=== PATIENT | female | born 1995 | race Two or more races ===

== ENCOUNTER 2017-03-17 19:52 | Emergency (ER) | payer MEDICAID ==
[~2017-03-17] VITALS: Ht 175.3 cm; Wt 72.6 kg
[2017-03-17 20:00] VITALS: BP 114/96
[2017-03-17 20:34] LABS: Urine Bilirubin Negative (Negative); Urine Blood Negative /uL (Negative); Urine Color Yellow (Yellow); Urine Glucose Normal (Normal); Urine Ketone Negative (Negative); Urine Nitrite Negative (Negative); Urine RBC <1 /hpf (0 - 4); Urine Squamous Epithelial Cell FEW /hpf (<5); Urine Urobilinogen Normal (Negative); Urine pH 5.5 (5.0-8.0)
[2017-03-17 21:18] LABS: Basophils # (auto) 0 uL; Basophils % (auto) 0.4 % (0.0-2.0); CONDITION Y; DEFINITIVE Y; Eosinophils # (auto) 0.1 uL; Eosinophils % (auto) 1.6 % (0.0-7.0); Hematocrit 40.7 % (36.0-46.0); Hemoglobin 13.7 g/dL (12.2-16.2); Lymphocytes # (auto) 3.3 uL; Lymphocytes % (auto) 35.8 % (10.0-50.0); Mean Corpuscular Hemoglobin 26.6 pg (28.0-32.0); Mean Corpuscular Hgb Conc. 33.6 g/dL (32.0-36.0); Mean Corpuscular Volume 79.3 fL (80.0-100.0); Mean Platelet Volume 8.8 fL (7.4-10.4); Monocytes # (auto) 0.6 uL; Monocytes % (auto) 6.8 % (0.0-12.0); Neutrophils # (auto) 5.1 uL; Neutrophils % (auto) 55.4 % (37.0-80.0); Platelet Count (auto) 313 10^3/uL (140-450); Red Cell Distribution Width 14.8 % (11.6-16.0); White Blood Cell 9.3 10^3/uL (4.4-10.8)
[2017-03-17 21:35] LABS: Albumin 3.7 g/dL (3.4-5.0); Anion Gap 11 (5-15); Aspartate Aminotransferase 22 U/L (15-37); BUN/Creatinine Ratio 15.7; Blood Urea Nitrogen 11 mg/dL (7-18); Calcium 8.3 mg/dL (8.5-10.1); Carbon Dioxide 23 mmol/L (21-32); Chloride 109 mmol/L (98-107); GFR African American 135 mL/min; GFR Non-African American 111 mL/min; Glucose 89 mg/dL (74-106); Magnesium 2.1 mg/dL (1.6-2.6); Potassium 3.6 mmol/L (3.5-5.1); Sodium 143 mmol/L (136-145)
[2017-03-17 21:40] LABS: Alkaline Phosphatase 187 U/L (45-117); Bilirubin, Total 0.7 mg/dL (0.2-1.0)
== END 2017-03-18 02:52 | disposition left against medical advice (07) ==
LOC: ER 19:56
DX: R07.89 Other chest pain (principal); Z53.21 Procedure and treatment not carried out due to patient leaving prior to being seen by health care provider
CPT/HCPCS: 36415; 80053; 81001; 83735; 84484; 84702; 85025; 93005

== ENCOUNTER 2017-09-30 09:15 | Observation (INO) | payer MEDICAID ==
[~2017-09-30] VITALS: Ht 175.3 cm; Wt 94.3 kg
[2017-09-30 10:30] LABS: Urine Bacteria NONE SEEN /hpf (None Seen); Urine Blood Negative /uL (Negative); Urine Mucus FEW (None Seen); Urine WBC 4 /hpf (0 - 5)
[2017-09-30] MEDS ORDERED: LACTATED RINGER'S 1,000 ML IV ONE (10:30)
== END 2017-09-30 12:25 | disposition home or self-care (01) | DRG 566 ==
LOC: LDRP 09:15
PROVIDERS: ADMIT Obstetrics & Gynecology; ATTEND Obstetrics & Gynecology
DX: O36.8130 Decreased fetal movements, third trimester, not applicable or unspecified (principal); O60.03 Preterm labor without delivery, third trimester; O23.43 Unspecified infection of urinary tract in pregnancy, third trimester; Z3A.29 29 weeks gestation of pregnancy
CPT/HCPCS: 59025; 81001; G0378

== ENCOUNTER 2025-02-05 11:38 | Inpatient (IN) | payer MEDICAID ==
[~2025-02-05] VITALS: Ht 175.3 cm; Wt 124.4 kg
--- NOTE | 2025-02-05 12:55 | DVH ---
Exam: US RIGHT UPPER EXT. Clinical History: Right shoulder pain Comparison: None Technique: Targeted sonographic evaluation of the soft tissues of the right shoulder was obtained utilizing gra yscale and color Doppler imaging. Findings/Impression: Isoechoic soft-tissue structure in the region of interest in the right shoulder measuring approximate ly 10.7 x 11.4 cm. This may represent a lipoma. This could be further evaluated with MRI without and with intravenous contrast if clinically indicated.
--- NOTE | 2025-02-05 14:32 | ED.PDOC ---
History of Present Illness(SKN HPI Comments 29 year old female with no pertinent MHx presents for a painful soft tissue mass consistent with lipoma to the right proximal humerus Symptoms have been ongoing for months and patient has been seen Dr. Chandra for a lipoma. Reports she has an upcoming apt 02/14 but and was prompted to the emergency department for worsening pain Patient reports the pain is consistent despite taking [id number] pain medication. Denies chest pain shortness of breath Denies fevers chills nausea vomiting diarrhea Chief Complaint: Upper Extremity Time Seen by MD: 12:13 Primary Care Provider: AILYN History of Present Illness: Nurses Notes, Medications, Allergies Allergies: Coded Allergies: No Known Drug Allergy (Verified Allergy, Unknown, 09/30/17) Home Meds No Active Prescriptions or Reported Meds Information Source: Patient Mode of Arrival: Ambulatory Past Medical History PAST MEDICAL HISTORY: Denies Surgical History: Denies all surgeries ORTHOPAEDIC SURGEON History: No Pertinent ORTHOPAEDIC SURGEON History Family History Family History: Reviewed,noncontributory to illness Social History Smoker: Non-Smoker Alcohol: Denies ETOH Use Drugs: Denies Drug Use All Other Systems: Reviewed and Negative (per hpi) Physical Exam General Appearance: No Apparent Distress, Normal HEENT: Normal ENT Inspection, Pharynx Normal, TMs Normal Neck: Full Range of Motion, Non-Tender, Normal, Normal Inspection Respiratory: Chest Non-Tender, Lungs Clear, No Accessory Muscle Use, No Respiratory Distress, Normal Breath Sounds Cardiovascular: No Edema, No JVD, No Murmur, No Gallop, Normal Peripheral Pulses, Regular Rate/Rhythm Breast Exam: Deferred Gastrointestinal: No Organomegaly, Non Tender, No Pulsatile Mass, Normal Bowel Sounds, Soft Genitalia: Deferred Pelvic: Deferred Rectal: Deferred Extremities: No calf tenderness, Normal capillary refill, Normal inspection, Normal range of motion, Non-tender, No pedal edema Musculoskeletal : Location: Right Extremity Location: Shoulder (Soft tissue swelling consistent with lipoma. No TTP. No erythema.) Apperance: Normal Neurologic: Alert, spray unit feeder II-XII nml as Tested, No Motor Deficits, Normal Affect, Normal Mood, No Sensory Deficits Cerebellar Function: Normal Reflexes: Normal Skin: Dry, Normal Color, Warm Lymphatic: No Adenopathy Was a procedure done? Was a procedure done?: No Differential Diagnosis (INTG) Differential Diagnosis: Other X-Ray, Labs, Meds, VS Vital Signs Date Time Temp Pulse Resp B/P (MAP) Pulse Ox O2 Delivery O2 Flow Rate FiO2 02/05/25 17:53 78 16 123/74 02/05/25 17:30 75 18 134/78 02/05/25 17:19 98.0 75 16 127/72 (90) 100 98.0 02/05/25 15:10 85 16 100 Room Air* 0 21 02/05/25 15:10 85 16 127/72 (90) 100 02/05/25 11:51 98.1 112 18 151/100 (117) 98 98.1 Lab Test 02/05/25 14:38 Range/Units White Blood Count 7.2 4.4-10.8 10^3/uL Red Blood Count 5.18 4.0-5.20 10^6/uL Hemoglobin 13.0 12.2-16.2 g/dL Hematocrit 40.0 36.0-46.0 % Mean Corpuscular Volume 77.3 L 80.0-100.0 fL Mean Corpuscular Hemoglobin 25.2 L 28.0-32.0 pg Mean Corpuscular Hemoglobin Concent 32.6 32.0-36.0 g/dL Red Cell Distribution Width 16.3 H 11.8-14.3 % Platelet Count 265 140-450 10^3/uL Mean Platelet Volume 7.8 6.9-10.8 fL Neutrophils (%) (Auto) 77.2 37.0-80.0 % Lymphocytes (%) (Auto) 15.4 10.0-50.0 % Monocytes (%) (Auto) 6.6 0.0-12.0 % Eosinophils (%) (Auto) 0.5 0.0-7.0 % Basophils (%) (Auto) 0.3 0.0-2.0 % Neutrophils # (Auto) 5.6 1.6-8.6 10 ^3/uL Lymphocytes # (Auto) 1.1 0.4-5.4 10 ^3/uL Monocytes # (Auto) 0.5 0-1.3 10 ^3/uL Eosinophils # (Auto) 0 0-0.8 10 ^3/uL Basophils # (Auto) 0 0-0.2 10 ^3/uL Nucleated Red Blood Cells 0.2 % Sodium Level 137 136-145 mmol/L Potassium Level 3.8 3.5-5.1 mmol/L Chloride Level 104 98-107 mmol/L Carbon Dioxide Level 23 20-31 mmol/L Anion Gap 10 5-15 Blood Urea Nitrogen 11 9-23 mg/dL Creatinine 0.63 0.550-1.02 mg/dL Glomerular Filtration Rate Calc 122 >90 mL/min BUN/Creatinine Ratio 17.5 10.0-20.0 Serum Glucose 97 74-106 mg/dL Calcium Level 9.2 8.7-10.4 mg/dL PATIENT: YURY GASCAACCT: [id number]: [id number] : 1995 LOC: ER ROOM / BED: / AGE / SEX: 29 / F ADM STATUS: REG ER SERVICE 1212 ORDERING PHYSICIAN: YANE BULLARD NP PROCEDURE(s): RUEXT - Right upper Ext. REASON: ORDER NUMBER(s): [id number], ACCESSION NUMBER(s): [id number] Exam: US RIGHT UPPER EXT. Clinical History: Right shoulder pain Comparison: None Technique: Targeted sonographic evaluation of the soft tissues of the right shoulder was obtained utilizing grayscale and color Doppler imaging. Findings/Impression: Isoechoic soft-tissue structure in the region of interest in the right shoulder measuring approximately 10.7 x 11.4 cm. This may represent a lipoma. This could be further evaluated with MRI without and with intravenous contrast if clinically indicated. ATED BY: ARTEMIO BALLARD MD DICTATED DATE/TIME: 02/05/251252 SIGNED BY: ARTEMIO BALLARD MD SIGNED DATE/TIME: 02/05/251252 CC: X-Ray, Labs, Meds, VS Comment The patient presents with s/s consistent with lipoma. US showed: Isoechoic soft-tissue structure in the region of interest in the right shoulder measuring approximately 10.7 x 11.4 cm. This may represent a lipoma. This could be further evaluated with MRI without and with intravenous contrast if clinically indicated. May need surgical consultation. The patient's workup reveals that the patient needs further evaluation and/or treatment for the above medical conditions. Patient verbalized understanding of the above and is awaiting further evaluation by the admitting service. Time of 1ST Reevaluation: 14:28 Reevaluation 1ST: Unchanged Patient Education/Counseling: Diagnosis, Treatment Family Education/Counseling: Diagnosis, Treatment Departure 1 Departure Time of Disposition: 14:31 Impression: Primary Impression: Lipoma Qualified Codes: D17.21 - Benign lipomatous neoplasm of skin and subcutaneous tissue of right arm Additional Impression: Intractable pain Disposition: ADMITTED INPATIENT Condition: Serious e-Prescriptions No Active Prescriptions or Reported Meds Critical Care Note Critical Care Time?: No Stability Stability form required: No Heart Score Heart Score: Heart Score Response (Comments) Value History N/A 0 EKG N/A 0 Age N/A 0 Risk Factors N/A 0 Troponin N/A 0 Total 0 YANE BULLARD NP February 05, 2025 14:32
[2025-02-05 14:53] LABS: Basophils # (auto) 0 10 ^3/uL (0-0.2); Basophils % (auto) 0.3 % (0.0-2.0); Eosinophils # (auto) 0 10 ^3/uL (0-0.8); Lymphocytes # (auto) 1.1 10 ^3/uL (0.4-5.4); Mean Corpuscular Hemoglobin 25.2 pg (28.0-32.0); Monocytes # (auto) 0.5 10 ^3/uL (0-1.3); Neutrophils # (auto) 5.6 10 ^3/uL (1.6-8.6); Red Blood Cells 5.18 10^6/uL (4.0-5.20); White Blood Cell 7.2 10^3/uL (4.4-10.8)
[2025-02-05 14:55] LABS: Eosinophils % (auto) 0.5 % (0.0-7.0); Lymphocytes % (auto) 15.4 % (10.0-50.0); Mean Corpuscular Hgb Conc. 32.6 g/dL (32.0-36.0); Mean Corpuscular Volume 77.3 fL (80.0-100.0); Monocytes % (auto) 6.6 % (0.0-12.0); Neutrophils % (auto) 77.2 % (37.0-80.0); Nucleated Red Blood Cells % 0.2 %; Platelet Count (auto) 265 10^3/uL (140-450); Red Cell Distribution Width 16.3 % (11.8-14.3)
[2025-02-05 15:01] LABS: Anion Gap 10 (5-15); Carbon Dioxide 23 mmol/L (20-31); Chloride 104 mmol/L (98-107); Potassium 3.8 mmol/L (3.5-5.1); Sodium 137 mmol/L (136-145)
[2025-02-05 15:02] LABS: Calcium 9.2 mg/dL (8.7-10.4)
[2025-02-05 15:06] LABS: BUN/Creatinine Ratio 17.5 (10.0-20.0); Blood Urea Nitrogen 11 mg/dL (9-23); Glucose 97 mg/dL (74-106)
[2025-02-05 15:10] VITALS: PULSE 85; RESP 16; O2SAT 100
[2025-02-05] MEDS: HYDROcodone-ACET 10/325MG TAB PO ONE (15:15)
[2025-02-05] MEDS: ONDANSETRON HCL 4 MG/2 ML VIAL IV ONE (17:28)
[2025-02-05] MEDS: MORPHINE SULFATE 4 MG/ML SYR/VIAL IV ONE (17:30)
[2025-02-05] MEDS ORDERED: ONDANSETRON HCL 4 MG/2 ML VIAL IV PRN (18:45)
[2025-02-05] MEDS ORDERED: TEMAZEPAM 15 MG CAP PO PRN (18:45)
[2025-02-05 20:04] LABS: INR 0.98 (0.9-1.15); Partial Thromboplastin Time 27.1 SEC (24.5-34.5); Prothrombin Time 10.4 sec (9.3-11.8)
[2025-02-05] MEDS: HYDROcodone-ACET 5/325MG TAB PO PRN (21:33)
[2025-02-05 22:13] VITALS: PULSE 89; RESP 18; O2SAT 99
[2025-02-05 23:20] VITALS: BP 133/77; PULSE 90; RESP 16; TEMP 98.4; O2SAT 98
[2025-02-06] VITALS (8 sets, daily range): BP systolic 113–148; BP diastolic 60–76; PULSE 69–104; RESP 18–20; TEMP 98.1–98.3; O2SAT 94–99
--- NOTE | 2025-02-06 13:01 | DVHINCON2 ---
Date of service: February 06, 2025 Family History: Patient reports no known family medical history. Allergies: Coded Allergies: No Known Drug Allergy (Verified Allergy, Unknown, 09/30/17) Home Meds No Active Prescriptions or Reported Meds Current Medications Current Medications Medications (Trade) Dose Ordered Sig/Benjy Route PRN Reason Start Time Stop Time Status Last Admin Acetaminophen/ Hydrocodone Bitart ([place] 5/325MG Tab) 1 tab Q4HP PRN PO MODERATE PAIN (4-6 PAIN SCALE) 02/05/25 18:45 02/06/25 06:06 Temazepam (Restoril) 15 mg QHSP PRN PO FOR INSOMNIA 02/05/25 18:45 Ondansetron HCl (Zofran) 4 mg Q4HP PRN IV NAUSEA / VOMITING 02/05/25 18:45 Acetaminophen (Tylenol Tablet) 650 mg Q6HP PRN PO PAIN SCALE 1-3 OR TEMP>100.4 02/05/25 18:45 Vital Signs Vital Signs Date Time Temp Pulse Resp B/P (MAP) Pulse Ox O2 Delivery O2 Flow Rate FiO2 02/06/25 09:00 98.2 69 18 113/76 (88) 99 98.2 02/06/25 08:00 Room Air* 0 21 Labs/Diagnostic Data Labs Test 02/05/25 19:41 02/05/25 14:38 Range/Units Prothrombin Time 10.4 9.3-11.8 sec Prothrombin Time INR 0.98 0.9-1.15 Activated Partial Thromboplast Time 27.1 24.5-34.5 SEC White Blood Count 7.2 4.4-10.8 10^3/uL Red Blood Count 5.18 4.0-5.20 10^6/uL Hemoglobin 13.0 12.2-16.2 g/dL Hematocrit 40.0 36.0-46.0 % Mean Corpuscular Volume 77.3 L 80.0-100.0 fL Mean Corpuscular Hemoglobin 25.2 L 28.0-32.0 pg Mean Corpuscular Hemoglobin Concent 32.6 32.0-36.0 g/dL Red Cell Distribution Width 16.3 H 11.8-14.3 % Platelet Count 265 140-450 10^3/uL Mean Platelet Volume 7.8 6.9-10.8 fL Neutrophils (%) (Auto) 77.2 37.0-80.0 % Lymphocytes (%) (Auto) 15.4 10.0-50.0 % Monocytes (%) (Auto) 6.6 0.0-12.0 % Eosinophils (%) (Auto) 0.5 0.0-7.0 % Basophils (%) (Auto) 0.3 0.0-2.0 % Neutrophils # (Auto) 5.6 1.6-8.6 10 ^3/uL Lymphocytes # (Auto) 1.1 0.4-5.4 10 ^3/uL Monocytes # (Auto) 0.5 0-1.3 10 ^3/uL Eosinophils # (Auto) 0 0-0.8 10 ^3/uL Basophils # (Auto) 0 0-0.2 10 ^3/uL Nucleated Red Blood Cells 0.2 % Sodium Level 137 136-145 mmol/L Potassium Level 3.8 3.5-5.1 mmol/L Chloride Level 104 98-107 mmol/L Carbon Dioxide Level 23 20-31 mmol/L Anion Gap 10 5-15 Blood Urea Nitrogen 11 9-23 mg/dL Creatinine 0.63 0.550-1.02 mg/dL Glomerular Filtration Rate Calc 122 >90 mL/min BUN/Creatinine Ratio 17.5 10.0-20.0 Serum Glucose 97 74-106 mg/dL Calcium Level 9.2 8.7-10.4 mg/dL Assessment has a large lipoma of the right shoulder at the apex of the shoulder and along thwe deltoid, pain is out of proportion to just an uncomplicated lipoma, will get MRI Plan discussed with: Patient, Spouse UNRULY MONTELONGO MD February 06, 2025 13:01
--- NOTE | 2025-02-06 13:17 | DVHPN2 ---
Reviewed: Care Plan, H&P, Labs, Medications, Previous Orders, Radiology Changes from previous H/P or p: No Changes Objective Vitals Vital Signs Date Time Temp Pulse Resp B/P (MAP) Pulse Ox O2 Delivery O2 Flow Rate FiO2 02/06/25 09:00 98.2 69 18 113/76 (88) 99 98.2 02/06/25 08:00 Room Air* 0 21 Intake/Output Intake and Output 02/06/25 07:00 Intake Total 240 ml Balance 240 ml Intake Oral 240 ml # Voids 2 Medications Current Medications Medications Dose Ordered Sig/Benjy Route Start Time Stop Time Status Last Admin Dose Admin Acetaminophen/ Hydrocodone Bitart 1 tab Q4HP PRN PO 02/05/25 18:45 02/06/25 06:06 1 TAB Temazepam 15 mg QHSP PRN PO 02/05/25 18:45 Ondansetron HCl 4 mg Q4HP PRN IV 02/05/25 18:45 Acetaminophen 650 mg Q6HP PRN PO 02/05/25 18:45 Laboratory Results Laboratory Tests 02/05/25 14:38 Chemistry Test 02/05/25 14:38 Calcium Level 9.2 mg/dL (8.7-10.4) Coagulation Test 02/05/25 19:41 Prothrombin Time 10.4 sec (9.3-11.8) Prothrombin Time INR 0.98 (0.9-1.15) Activated Partial Thromboplast Time 27.1 SEC (24.5-34.5) Labs and/or images reviewed: Labs reviewed by me, Image(s) reviewed by me Assessment/Plan Assessment/Plan 10 cm lipoma right shoulder: Surgical consult by Dr Chandra appreciated, MRI right shoulder pending. Plan discussed with: Patient Date of Service: February 06, 2025 Billing Provider: VALENTINO CAMPA MD Common Visit Codes: [id number] INP/OBS CARE(HIGH) VALENTINO CAMPA MD February 06, 2025 13:17
[2025-02-06] MEDS: GADOTERATE MEG 10 MMOL/20ml INJ (0.5MMOL/ml) IV ONE (14:55)
--- NOTE | 2025-02-06 21:20 | DVH ---
EXAM: MRI MRI R SHOULDER WITH CONTRAST INDICATION: pain neck and right shoulder (out of proportion to lipoma) TECHNIQUE: Multiplanar, multisequence MR images of the right shoulder were obtained with and without gadolinium contrast material. COMPARISON: None FINDINGS: [CORACOACROMIAL ARCH]: Normal acromioclavicular joint. Intact coracoclavicular ligaments. Intact cor acoacromial ligaments. No subacromial/subdeltoid bursal fluid. [ROTATOR CUFF]: Intact. [BICEPS TENDON]: Intact without tenosynovitis. [LABRUM]: Intact. [CARTILAGE]: No measurable cartilage defect. [GLENOHUMERAL JOINT]: No joint effusion. No intra-articular body. [BONES]: No acute fracture, osseous contusion, or aggressive focal osseous lesion. [MUSCLES]: Normal muscle bulk of the rotator cuff muscles. [NEUROVASCULAR/LYMPH NODES]: Normal. [OTHER]: Inversely clinical question, large fat containing, encapsulated mass measuring 10.5 x 7.7 x 7.8 cm in the superficial subcutaneous fat extending above the right acromioclavicular joint and like ly causing slight mass effect along the trapezius and deltoid muscle. No suspicious internal features . No suspicious septation or abnormal nodularity. Marginal vascularity. No suspicious internal thicke aneesh Hood. IMPRESSION: 1. 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 2. Given size and mass effect and pain, recommend surgical consultation with removal with presumption of atypical lipomatous tumor.
[2025-02-07] VITALS (8 sets, daily range): BP systolic 103–129; BP diastolic 55–76; PULSE 70–90; RESP 17–20; TEMP 97.7–98.4; O2SAT 95–98
--- NOTE | 2025-02-07 09:19 | DVHPN2 ---
Reviewed: Care Plan, H&P, Labs, Medications, Previous Orders, Radiology Changes from previous H/P or p: No Changes Objective Vitals Vital Signs Date Time Temp Pulse Resp B/P (MAP) Pulse Ox O2 Delivery O2 Flow Rate FiO2 02/07/25 08:00 70 18 96 Room Air* 0 21 02/07/25 05:00 98.2 103/55 (71) 98.2 Intake/Output Intake and Output 02/07/25 07:00 Intake Total 1250 ml Balance 1250 ml Intake Oral 1250 ml # Voids 3 # Bowel Movements 3 Medications Current Medications Medications Dose Ordered Sig/Benjy Route Start Time Stop Time Status Last Admin Dose Admin Acetaminophen/ Hydrocodone Bitart 1 tab Q4HP PRN PO 02/05/25 18:45 02/06/25 06:06 1 TAB Temazepam 15 mg QHSP PRN PO 02/05/25 18:45 Ondansetron HCl 4 mg Q4HP PRN IV 02/05/25 18:45 Acetaminophen 650 mg Q6HP PRN PO 02/05/25 18:45 Laboratory Results Laboratory Tests 02/05/25 14:38 Labs and/or images reviewed: Labs reviewed by me, Image(s) reviewed by me Assessment/Plan Assessment/Plan 10 cm lipoma right shoulder: Surgical consult by Dr Chandra appreciated MRI shows well-differentiated liposarcoma Plan discussed with: Patient Date of Service: February 07, 2025 Billing Provider: VALENTINO CAMPA MD Common Visit Codes: [id number] INP/OBS CARE(HIGH) VALENTINO CAMPA MD February 07, 2025 09:19
--- NOTE | 2025-02-07 09:57 | DVHPN2 ---
Subjective Date Seen: February 07, 2025 Post op day Post op day: 0 Patient reports: No new complaints Nursing reports: No new complaints General: Normal HNT: Normal Cardiovascular: Normal Respiratory: Normal Gastrointestinal: Normal Genitourinary: Normal Musculoskeletal: Pain Neurological: Normal Objective Vitals Vital Sign Date Time Temp Pulse Resp B/P (MAP) Pulse Ox O2 Delivery O2 Flow Rate FiO2 02/07/25 09:00 97.7 80 18 129/70 (89) 98 97.7 02/07/25 08:00 Room Air* 0 21 Total Intake and Output 02/06/25 02/06/25 02/07/25 15:00 23:00 07:00 Intake Total 350 ml 900 ml Balance 350 ml 900 ml Medications Current Medications Medications Dose Ordered Sig/Benjy Route Start Time Stop Time Status Last Admin Dose Admin Acetaminophen/ Hydrocodone Bitart 1 tab Q4HP PRN PO 02/05/25 18:45 02/06/25 06:06 1 TAB Temazepam 15 mg QHSP PRN PO 02/05/25 18:45 Ondansetron HCl 4 mg Q4HP PRN IV 02/05/25 18:45 Acetaminophen 650 mg Q6HP PRN PO 02/05/25 18:45 General: Normal, Well developed, Obese Head/Eyes: Normal ENT: Normal Neck: Normal Lungs: Normal Abdominal: Normal, Soft, Normal inspection Labs and Microbiology Laboratory Tests 02/05/25 14:38 Test 02/05/25 14:38 Range/Units Serum Glucose 97 74-106 mg/dL Ass/Plan Labs and/or images reviewed: Labs reviewed by me, Image(s) reviewed by me Problems(with codes): (1) Shoulder pain, right (2) Lipoma (3) Intractable pain Assessment/Plan patient complaint of right shoulder pain patient has a mass to right shoulder which is tender to palpation review of of MRI and discussion with Dr. Chandra IMPRESSION: 1. 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 2. Given size and mass effect and pain, recommend surgical consultation with removal with presumption of atypical lipomatous tumor. Plan: excision of right shoulder mass tomorrow Prognosis: Good Plan discussed with patient , Dr. Chandra Visit Coding Surgery Date of Service if different f: February 07, 2025 Billing Provider: UNRULY CHANDRA MD Surgery Visit Codes: [id number] INP/OBS CARE(HIGH) SHOLA MCNEIL STRIP STAMP STRAIGHTENER February 07, 2025 09:57
[2025-02-07 11:02] LABS: INR 0.97 (0.9-1.15); Partial Thromboplastin Time 25.4 SEC (24.5-34.5); Prothrombin Time 10.3 sec (9.3-11.8)
[2025-02-07 23:45] LABS: Urine Bacteria MANY /hpf (None Seen); Urine Blood Negative /uL (Negative); Urine Clarity Turbid (Clear); Urine Color Light-Yellow (Yellow); Urine Protein, UAD Negative (Negative); Urine Specific Gravity 1.025 (1.001-1.035); Urine Squamous Epithelial Cell FEW /hpf (<5); Urine Urobilinogen Normal (Negative); Urine WBC 13 /HPF (0-5); Urine pH 6.5 (5.0-9.0)
[2025-02-08] VITALS (8 sets, daily range): BP systolic 99–137; BP diastolic 44–75; PULSE 80–111; RESP 13–21; TEMP 97.8–98.6; O2SAT 93–100
[2025-02-08] MEDS: ceFAZolin 2 GM/D5W50ml 50 ML IV ONE (07:47)
--- NOTE | 2025-02-08 08:09 | DVHHP2 ---
History of Present Illness History of Present Illness 29-year-old female with no previous medical history came to the ER complaining of pain over the right upper arm and shoulder area for a few months the swelling has been growing and tender. Denies any fever. Review of Systems Musculoskeletal: shoulder pain, arm pain Allergies: Coded Allergies: No Known Drug Allergy (Verified Allergy, Unknown, 09/30/17) Medications Current Medications Medications Dose Ordered Sig/Benjy Route Start Time Stop Time Status Last Admin Dose Admin Acetaminophen/ Hydrocodone Bitart 1 tab Q4HP PRN PO 02/05/25 18:45 02/06/25 06:06 1 TAB Temazepam 15 mg QHSP PRN PO 02/05/25 18:45 Ondansetron HCl 4 mg Q4HP PRN IV 02/05/25 18:45 Acetaminophen 650 mg Q6HP PRN PO 02/05/25 18:45 Exam Vital Signs Vital Signs Date Time Temp Pulse Resp B/P (MAP) Pulse Ox O2 Delivery O2 Flow Rate FiO2 02/08/25 05:00 97.9 83 18 103/57 (72) 97 97.9 02/07/25 20:00 Room Air* 0 21 Exam Soft tissue mass over the right upper arm and shoulder consistent with a possible lipoma Labs/Xrays Labs Test 02/07/25 23:30 02/07/25 10:06 02/05/25 14:38 Range/Units Urine Color Light-yellow Yellow Urine Clarity Turbid H Clear Urine pH 6.5 5.0-9.0 Urine Specific [place] 1.025 1.001-1.035 Urine Protein Negative Negative Urine Ketones Negative Negative Urine Blood Negative Negative /uL Urine Nitrite 2+ H Negative Urine Bilirubin Negative Negative Urine Urobilinogen Normal Negative mg/dL Urine Leukocyte Esterase 1+ Negative /uL Urine RBC 3 0 - 4 /hpf Urine Microscopic WBC 13 H 0-5 /HPF Urine Squamous Epithelial Cells Few <5 /hpf Urine Bacteria Many H None Seen /hpf Urine Glucose Normal Normal mg/dL Prothrombin Time 10.3 9.3-11.8 sec Prothrombin Time INR 0.97 0.9-1.15 Activated Partial Thromboplast Time 25.4 24.5-34.5 SEC Beta HCG, Quantitative 0.2 L 1.5-4.2 mIU/mL White Blood Count 7.2 4.4-10.8 10^3/uL Red Blood Count 5.18 4.0-5.20 10^6/uL Hemoglobin 13.0 12.2-16.2 g/dL Hematocrit 40.0 36.0-46.0 % Mean Corpuscular Volume 77.3 L 80.0-100.0 fL Mean Corpuscular Hemoglobin 25.2 L 28.0-32.0 pg Mean Corpuscular Hemoglobin Concent 32.6 32.0-36.0 g/dL Red Cell Distribution Width 16.3 H 11.8-14.3 % Platelet Count 265 140-450 10^3/uL Mean Platelet Volume 7.8 6.9-10.8 fL Neutrophils (%) (Auto) 77.2 37.0-80.0 % Lymphocytes (%) (Auto) 15.4 10.0-50.0 % Monocytes (%) (Auto) 6.6 0.0-12.0 % Eosinophils (%) (Auto) 0.5 0.0-7.0 % Basophils (%) (Auto) 0.3 0.0-2.0 % Neutrophils # (Auto) 5.6 1.6-8.6 10 ^3/uL Lymphocytes # (Auto) 1.1 0.4-5.4 10 ^3/uL Monocytes # (Auto) 0.5 0-1.3 10 ^3/uL Eosinophils # (Auto) 0 0-0.8 10 ^3/uL Basophils # (Auto) 0 0-0.2 10 ^3/uL Nucleated Red Blood Cells 0.2 % Sodium Level 137 136-145 mmol/L Potassium Level 3.8 3.5-5.1 mmol/L Chloride Level 104 98-107 mmol/L Carbon Dioxide Level 23 20-31 mmol/L Anion Gap 10 5-15 Blood Urea Nitrogen 11 9-23 mg/dL Creatinine 0.63 0.550-1.02 mg/dL Glomerular Filtration Rate Calc 122 >90 mL/min BUN/Creatinine Ratio 17.5 10.0-20.0 Serum Glucose 97 74-106 mg/dL Calcium Level 9.2 8.7-10.4 mg/dL Assessment/Plan Assessment/Plan 10 cm lipoma right shoulder: Patient will be admitted and have a surgical consult by Dr. Chandra Plan discussed with: Patient VALENTINO CAMPA MD February 08, 2025 08:09
--- NOTE | 2025-02-08 08:12 | DVHPN2 ---
Reviewed: Care Plan, H&P, Labs, Medications, Previous Orders, Radiology Changes from previous H/P or p: No Changes Musculoskeletal: shoulder pain, arm pain Objective Vitals Vital Signs Date Time Temp Pulse Resp B/P (MAP) Pulse Ox O2 Delivery O2 Flow Rate FiO2 02/08/25 05:00 97.9 83 18 103/57 (72) 97 97.9 02/07/25 20:00 Room Air* 0 21 Intake/Output Intake and Output 02/08/25 07:00 Intake Total 1180 ml Balance 1180 ml Intake Oral 1180 ml # Voids 6 Medications Current Medications Medications Dose Ordered Sig/Benjy Route Start Time Stop Time Status Last Admin Dose Admin Acetaminophen/ Hydrocodone Bitart 1 tab Q4HP PRN PO 02/05/25 18:45 02/06/25 06:06 1 TAB Temazepam 15 mg QHSP PRN PO 02/05/25 18:45 Ondansetron HCl 4 mg Q4HP PRN IV 02/05/25 18:45 Acetaminophen 650 mg Q6HP PRN PO 02/05/25 18:45 Laboratory Results Laboratory Tests 02/05/25 14:38 Coagulation Test 02/07/25 10:06 Prothrombin Time 10.3 sec (9.3-11.8) Prothrombin Time INR 0.97 (0.9-1.15) Activated Partial Thromboplast Time 25.4 SEC (24.5-34.5) Urinalysis Test 02/07/25 23:30 Urine Color Light-yellow (Yellow) Urine Clarity Turbid (Clear) H Urine pH 6.5 (5.0-9.0) Urine Specific [place] 1.025 (1.001-1.035) Urine Protein Negative (Negative) Urine Ketones Negative (Negative) Urine Blood Negative /uL (Negative) Urine Nitrite 2+ (Negative) H Urine Bilirubin Negative (Negative) Urine Urobilinogen Normal mg/dL (Negative) Urine Leukocyte Esterase 1+ /uL (Negative) Urine RBC 3 /hpf (0 - 4) Urine Microscopic WBC 13 /HPF (0-5) H Urine Squamous Epithelial Cells Few /hpf (<5) Urine Bacteria Many /hpf (None Seen) H Urine Glucose Normal mg/dL (Normal) Labs and/or images reviewed: Labs reviewed by me, Image(s) reviewed by me Assessment/Plan Assessment/Plan 10 cm lipoma right shoulder: Surgical consult by Dr. Chandra appreciated. MRI shows well-differentiated liposarcoma, patient getting surgery today Continue pain medicines Plan discussed with: Patient Date of Service: February 08, 2025 Billing Provider: VALENTINO CAMPA MD Common Visit Codes: [id number] INP/OBS CARE(HIGH) VALENTINO CAMPA MD February 08, 2025 08:12
[2025-02-08] MEDS: SUCCINYLCHOLINE CHLORIDE 20 MG/ML 10ML VIAL IV ONE (09:13)
[2025-02-08] MEDS ORDERED: MIDAZOLAM HCL 2MG/2ML 2ml VIAL (1mg/ml) ONE (09:14)
[2025-02-08] MEDS ORDERED: fentaNYL CITRATE 100 MCG/2 ML VL ONE (09:14)
[2025-02-08] MEDS: BUPIVACAINE HCL 0.25% P/F 10 ML VIAL ONE (09:35)
[2025-02-08] MEDS: LIDOCAINE W/ EPINEPHRINE 1% 20ML VIAL ONE (09:35)
[2025-02-08] MEDS ORDERED: PROPOFOL 10 MG/ML 20 ML IV ONE (09:40)
[2025-02-08] MEDS ORDERED: DexAMETHasone SOD PHOS 10MG/1ML VIAL INJ ONE (09:40)
[2025-02-08] MEDS ORDERED: ONDANSETRON HCL 4 MG/2 ML VIAL ONE (09:40)
[2025-02-08] MEDS ORDERED: ROCURONIUM 10MG/ML 10ML VIAL IV ONE (09:41)
[2025-02-08] MEDS ORDERED: SUGAMMADEX 200mg/2ml Vial (100MG/ML) IV ONE (10:02)
--- NOTE | 2025-02-08 10:04 | DVHOP ---
DATE OF SURGERY: 02/08/2025 PREOPERATIVE DIAGNOSIS: Tumor, right shoulder. POSTOPERATIVE DIAGNOSIS: Lipoma, right shoulder. SURGEON: Clayton Chandra MD TURBOGENERATOR OPERATOR: Quinn Ariza. ANESTHESIA: General endotracheal, Dr. Dobbs. PROCEDURE: Excision of lipoma from right shoulder. DESCRIPTION OF PROCEDURE: The patient was anesthetized and intubated. The patient's right shoulder, chest, and neck were prepped and draped, and the skin over the large lipomatous tumor was infiltrated with 0.25% Marcaine for postoperative analgesia. The incision was made, deepened with electrocautery. Digital dissection revealed a smooth, fully encapsulated lipomatous tumor which reached from the clavicle to the superior edge of the scapula of the right shoulder. There was no evidence of tissue degeneration or tissue infarction. There were no areas of tissue infiltration or erosion of surrounding structures. I doubt the diagnosis of liposarcoma is indicated by MRI. I believe this is a benign lipoma. The tumor was submitted for histopathologic examination. The wound was irrigated. Hemostasis was accomplished. Approximation accomplished utilizing 2-0 Monocryl sutures after insertion of a 10-mm Ricky-Flannery drain into the large cavity evacuated from the lipoma excision. Skin and subcutaneous tissues were approximated using Monocryl sutures, Dermabond glue, and Steri-Strips. The patient remained stable throughout the procedure, left the operating room following an accurate needle and sponge count. The patient's mother was thoroughly informed in the waiting area in Tunisian. Clayton Chandra MD PF/STEFFI TID: [id number] RECEIPT: [id number]
[2025-02-08] MEDS: ceFAZolin 1GM/50ML 50 ML IV SCH (14:46)
[2025-02-08] MEDS: D5W/SOD CHL 0.45%/KCL 20MEQ 1,000 ML IV SCH (14:46)
[2025-02-08] MEDS: ACETAMINOPHEN 325 MG TAB PO PRN (22:19)
[2025-02-09 01:00] VITALS: BP_SYST 115; BP_SYST 155; BP_DIAS 53; BP_DIAS 85; PULSE 55; PULSE 95; RESP 18; TEMP 97.9; TEMP 98.3; O2SAT 96; O2SAT 98
[2025-02-09 05:00] VITALS: BP 122/70; PULSE 81; RESP 18; TEMP 98.6; O2SAT 96
[2025-02-09] MEDS ORDERED: PNEUMOCOCCAL VACC POLYS 25 MCG/0.5 ML VIAL IM ONE (07:15)
[2025-02-09 08:00] VITALS: PULSE 85; RESP 20; O2SAT 95
[2025-02-09 09:00] VITALS: BP 116/59; PULSE 85; RESP 18; TEMP 97.8; O2SAT 95
--- NOTE | 2025-02-09 09:04 | DVHPN2 ---
Reviewed: Care Plan, H&P, Labs, Medications, Previous Orders, Radiology Changes from previous H/P or p: No Changes Musculoskeletal: shoulder pain, arm pain Objective Vitals Vital Signs Date Time Temp Pulse Resp B/P (MAP) Pulse Ox O2 Delivery O2 Flow Rate FiO2 02/09/25 08:00 85 20 95 Room Air* 0 21 02/09/25 05:00 98.6 122/70 (87) 98.6 Intake/Output Intake and Output 02/09/25 07:00 Intake Total 1975 ml Output Total 20 ml Balance 1955 ml Intake Oral 925 ml IV Total 1050 ml Output Drainage Total 20 ml # Voids 2 Medications Current Medications Medications Dose Ordered Sig/Benjy Route Start Time Stop Time Status Last Admin Dose Admin Acetaminophen/ Hydrocodone Bitart 1 tab Q4HP PRN PO 02/05/25 18:45 02/06/25 06:06 1 TAB Temazepam 15 mg QHSP PRN PO 02/05/25 18:45 Ondansetron HCl 4 mg Q4HP PRN IV 02/05/25 18:45 Acetaminophen 650 mg Q6HP PRN PO 02/05/25 18:45 02/08/25 22:19 650 MG Potassium Chloride/Dextrose/ Sod Cl 1,000 ml @ 50 mls/hr Q20H IV 02/08/25 09:45 02/08/25 14:46 50 MLS/HR Cefazolin Sodium 50 ml @ 100 mls/hr Q8HR IV 02/08/25 14:00 02/09/25 05:53 100 MLS/HR Laboratory Results Laboratory Tests 02/05/25 14:38 Urinalysis Test 02/07/25 23:30 Urine Color Light-yellow (Yellow) Urine Clarity Turbid (Clear) H Urine pH 6.5 (5.0-9.0) Urine Specific [place] 1.025 (1.001-1.035) Urine Protein Negative (Negative) Urine Ketones Negative (Negative) Urine Blood Negative /uL (Negative) Urine Nitrite 2+ (Negative) H Urine Bilirubin Negative (Negative) Urine Urobilinogen Normal mg/dL (Negative) Urine Leukocyte Esterase 1+ /uL (Negative) Urine RBC 3 /hpf (0 - 4) Urine Microscopic WBC 13 /HPF (0-5) H Urine Squamous Epithelial Cells Few /hpf (<5) Urine Bacteria Many /hpf (None Seen) H Urine Glucose Normal mg/dL (Normal) Labs and/or images reviewed: Labs reviewed by me, Image(s) reviewed by me Assessment/Plan Assessment/Plan 10 cm lipoma right shoulder: MRI shows well-differentiated liposarcoma, status post excision of the lipoma by Dr. Chandra on 02-08-25 Continue pain medicines Check CBC tomorrow Plan discussed with: Patient My Orders Orders - VALENTINO CAMPA MD Procedure Category Date Status Time Complete Blood Count LAB 02/10/25 Verified 04:00 Date of Service: February 09, 2025 Billing Provider: VALENTINO CAMPA MD Common Visit Codes: [id number] INP/OBS CARE(HIGH) VALENTINO CAMPA MD February 09, 2025 09:04
[2025-02-09] MEDS ORDERED: CEPH500C PO (09:06)
[2025-02-09] MEDS ORDERED: HYDR-4902 PO (09:06)
--- NOTE | 2025-02-09 09:10 | DVHDS2 ---
Discharge Summary Date of Admission February 05, 2025 at 18:44 Date of Discharge: February 09, 2025 Admitting Diagnosis Lipoma right shoulder Wounds: Excision lipoma right shoulder Labs/Diagnostic Data: Laboratory Results Test 02/07/25 23:30 02/07/25 10:06 02/05/25 14:38 Urine Color Light-yellow (Yellow) Urine Clarity Turbid (Clear) Urine pH 6.5 (5.0-9.0) Urine Specific [place] 1.025 (1.001-1.035) Urine Protein Negative (Negative) Urine Ketones Negative (Negative) Urine Blood Negative /uL (Negative) Urine Nitrite 2+ (Negative) Urine Bilirubin Negative (Negative) Urine Urobilinogen Normal mg/dL (Negative) Urine Leukocyte Esterase 1+ /uL (Negative) Urine RBC 3 /hpf (0 - 4) Urine Microscopic WBC 13 /HPF (0-5) Urine Squamous Epithelial Cells Few /hpf (<5) Urine Bacteria Many /hpf (None Seen) Urine Glucose Normal mg/dL (Normal) Prothrombin Time 10.3 sec (9.3-11.8) Prothrombin Time INR 0.97 (0.9-1.15) Activated Partial Thromboplast Time 25.4 SEC (24.5-34.5) Beta HCG, Quantitative 0.2 mIU/mL (1.5-4.2) White Blood Count 7.2 10^3/uL (4.4-10.8) Red Blood Count 5.18 10^6/uL (4.0-5.20) Hemoglobin 13.0 g/dL (12.2-16.2) Hematocrit 40.0 % (36.0-46.0) Mean Corpuscular Volume 77.3 fL (80.0-100.0) Mean Corpuscular Hemoglobin 25.2 pg (28.0-32.0) Mean Corpuscular Hemoglobin Concent 32.6 g/dL (32.0-36.0) Red Cell Distribution Width 16.3 % (11.8-14.3) Platelet Count 265 10^3/uL (140-450) Mean Platelet Volume 7.8 fL (6.9-10.8) Neutrophils (%) (Auto) 77.2 % (37.0-80.0) Lymphocytes (%) (Auto) 15.4 % (10.0-50.0) Monocytes (%) (Auto) 6.6 % (0.0-12.0) Eosinophils (%) (Auto) 0.5 % (0.0-7.0) Basophils (%) (Auto) 0.3 % (0.0-2.0) Neutrophils # (Auto) 5.6 10 ^3/uL (1.6-8.6) Lymphocytes # (Auto) 1.1 10 ^3/uL (0.4-5.4) Monocytes # (Auto) 0.5 10 ^3/uL (0-1.3) Eosinophils # (Auto) 0 10 ^3/uL (0-0.8) Basophils # (Auto) 0 10 ^3/uL (0-0.2) Nucleated Red Blood Cells 0.2 % Sodium Level 137 mmol/L (136-145) Potassium Level 3.8 mmol/L (3.5-5.1) Chloride Level 104 mmol/L (98-107) Carbon Dioxide Level 23 mmol/L (20-31) Anion Gap 10 (5-15) Blood Urea Nitrogen 11 mg/dL (9-23) Creatinine 0.63 mg/dL (0.550-1.02) Glomerular Filtration Rate Calc 122 mL/min (>90) BUN/Creatinine Ratio 17.5 (10.0-20.0) Serum Glucose 97 mg/dL (74-106) Calcium Level 9.2 mg/dL (8.7-10.4) Other Laboratory Tests 02/05/25 14:38 Brief Hx & Hospital Course: Patient came in for swelling of the right shoulder .MRI showed well- differentiated liposarcoma. Patient underwent excision of the lipoma by surgeon . Postop course uneventful cleared for discharge by surgeon she will follow up with the surgeon in 10 days for drain removal Consults/Reason for consult Surgeon Operations or Procedures Excision lipoma right shoulder Condition at Discharge: Fair Final Diagnosis/Problems List Lipoma right shoulder status post excision Discharge Disposition: Home Discharge Instruct/Medications Diet: Regular Activity: Light activity Follow Up/Referral: Follow up with surgeon Dr. Chandra in 10 days for drain removal Medications: Keflex [place] Transmitted to pharmacy 35 (Time taken for discharge summary 35 minutes) Discharge Statement: "Patient was advised to return to the ER or call 911 if any headaches, dizziness, shortness of breath, chest pain, abdominal pain, bleeding, fevers, or worsening of medical condition. Patient was counseled about treatment plan, medications, possible side effects, patient�verbalized understanding. All questions were answered to the best of my ability. This discharge took greater then 30 minutes in planning, reviewing documentation, counseling the patient, and discussing with other team members." ASSESSMENT ASSESSMENT Hospital Course Uneventful Assessment Lipoma right shoulder status post excision Date of Service: February 09, 2025 Billing Provider: VALENTINO CAMPA MD Common Visit Codes: [id number]/OBS DISCH DAY >30min VALENTINO CAMPA MD February 09, 2025 09:10
== END 2025-02-09 10:47 | disposition home or self-care (01) | DRG 385 ==
LOC: ER 11:38 → OVERFLOW 18:44 → EAST 22:10
PROVIDERS: ADMIT Family Medicine; ATTEND Family Medicine
PROC: 0JBD0ZZ Excision of Right Upper Arm Subcutaneous Tissue and Fascia, Open Approach (ICD-10-PCS; principal; 2025-02-08 09:17)
DX: D17.21 Benign lipomatous neoplasm of skin and subcutaneous tissue of right arm (principal)
CPT/HCPCS: 36415; 73219; 76881; 80048; 81001; 84702; 85025; 85610; 85730; 86850; 86900; 86901; 96374; 96375; G0378; J0330; J1100; J2250; J2405; J2704; J3490

== ENCOUNTER 2025-08-01 11:17 | Emergency (ER) | payer MEDICAID ==
[~2025-08-01] VITALS: Ht 175.3 cm; Wt 123.0 kg
[~2025-08-01 11:17] MED LIST: CEPH500C PO; HYDR-4902 PO
--- NOTE | 2025-08-01 11:54 | ED.PDOC ---
History of Present Illness HPI Comments 50-year-old female presents to the ER with prior surgical history of right shoulder surgery six months ago and with the chief complaint of right arm pain. Reports on having right arm pain associated with numbness for the past four months originally being a 4/10 on the pain scale but recently has been an 8/10. Denies any other symptoms at this time. Denies chills, fever, N/V/D, SOB, CP. No other associated symptoms, modifiers, recent injuries or sick contacts present at this time. Chief Complaint: Upper Extremity Time Seen by MD: 11:50 Primary Care Provider: AILYN Cortez Notes: Nurses Notes, Medications, Allergies Allergies: Coded Allergies: No Known Drug Allergy (Verified Allergy, Unknown, 09/30/17) Home Meds Active Scripts Hydrocodone-Acetaminophen (Hydrocodone Bitartrate/AC 5-325 mg) 1 Tab Tab, 1 TAB PO QID PRN, #30 TAB Prov:VALENTINO CAMPA MD 02/09/25 Cephalexin Monohydrate (Cephalexin) 500 Mg Cap, 1 CAP PO QID, #28 CAP Prov:VALENTINO CAMPA MD 02/09/25 Information Source: Patient Mode of Arrival: Ambulatory Severity: Moderate Timing: Months Duration: Since onset Prehospital treatment: None Past Medical History PAST MEDICAL HISTORY: Denies Surgical History (Other): Right shoulder surgery FRONT OFFICE SPEC History: No Pertinent FRONT OFFICE SPEC History Family History Family History: Reviewed,noncontributory to illness, Unknown Social History Smoker: Non-Smoker Alcohol: Denies ETOH Use Drugs: Denies Drug Use Lives In: Home Constitutional: denies: chills, diaphoresis, fatigue, fever, malaise, sweats, weakness, others EENTM: denies: blurred vision, double vision, ear bleeding, ear discharge, ear drainage, ear pain, ear ringing, eye pain, eye redness, hearing loss, mouth pain, mouth swelling, nasal discharge, nose bleeding, nose congestion, nose pain, photophobia, tearing, throat pain, throat swelling, voice changes, others Respiratory: denies: cough, hemoptysis, orthopnea, SOB at rest, shortness of breath, SOB with excertion, stridor, wheezing, others Cardiovascular: denies: chest pain, dizzy spells, diaphoresis, Dyspnea on exertion, edema, irregular heart beat, left arm pain, lightheadedness, palpitations, PND, syncope, others Gastrointestinal: denies: abdomen distended, abdominal pain, blood streaked bowels, constipated, diarrhea, dysphagia, difficulty swallowing, hematemesis, melena, nausea, poor appetite, poor fluid intake, rectal bleeding, rectal pain, vomiting, others Genitourinary: denies: abnormal vagina bleeding, burning, dyspareunia, dysuria, flank pain, frequency, hematuria, incontinence, pain, , vagina discharge, urgency, others Neurological: denies: dizziness, fainting, headache, left sided numbness, left sided weakness, numbness, paresthesia, pre-existing deficit, right sided numbness, right sided weakness, seizure, speech problems, tingling, tremors, weakness, others Musculoskeletal: reports: others (Right shoulder surgery); denies: back pain, gout, joint pain, joint swelling, muscle pain, muscle stiffness, neck pain Integumetry: denies: bruises, change in color, change in hair/nails, dryness, laceration, lesions, lumps, rash, wounds, others Allergic/Immunocompromised: denies: Difficulty Healing, Frequent Infections, Hives, Itching, others Hematologic/Lymphatic: denies: anemia, blood clots, easy bleeding, easy bruising, swollen glands, others Endocrine: denies: excessive hunger, excessive sweating, excessive thirst, excessive urination, flushing, intolerance to cold, intolerance to heat, unexplained weight gain, unexplained weight loss, others Psychiatric: denies: anxiety, bipolar disorder, depression, hopeless, panic disorder, schizophrenia, sleepless, suicidal, others All Other Systems: Reviewed and Negative Physical Exam General Appearance: Moderate Distress, Normal HEENT: Normal ENT Inspection, Pharynx Normal, TMs Normal Neck: Full Range of Motion, Non-Tender, Normal, Normal Inspection Respiratory: Chest Non-Tender, Lungs Clear, No Accessory Muscle Use, No Respiratory Distress, Normal Breath Sounds Cardiovascular: No Edema, No JVD, No Murmur, No Gallop, Normal Peripheral Pulses, Regular Rate/Rhythm Breast Exam: Deferred Gastrointestinal: No Organomegaly, Non Tender, No Pulsatile Mass, Normal Bowel Sounds, Soft Genitalia: Deferred Pelvic: Deferred Rectal: Deferred Extremities: No calf tenderness, Normal capillary refill, Normal inspection, Normal range of motion, Non-tender, No pedal edema Musculoskeletal : Apperance: Normal Neurologic: Alert, obstetrics gynecology md II-XII nml as Tested, No Motor Deficits, Normal Affect, Normal Mood, No Sensory Deficits Cerebellar Function: NOT DONE Reflexes: NOT DONE Skin: Dry, Normal Color, Warm Peripheral Pulses: 3+ Radial (R), 3+ Radial (L) Lymphatic: No Adenopathy Was a procedure done? Was a procedure done?: No Differential Dx Considerations may include: Muscle strain X-Ray, Labs, Meds, VS Vital Signs Date Time Temp Pulse Resp B/P (MAP) Pulse Ox O2 Delivery O2 Flow Rate FiO2 08/01/25 11:19 97.8 88 16 131/92 98 97.8 Patient alert. Vitals stable. No sign of distress. Answering questions. Saturation pristine on room air. No leg swelling. Ultrasound reviewed does not show DVT. Explained to the patient. Was told to follow up with his primary care physician. Was told to come back if there is any problem. Time of 1ST Reevaluation: 12:20 Reevaluation 1ST: Improved Patient Education/Counseling: Diagnosis, Treatment, Prognosis Family Education/Counseling: No Family Present SEPSIS Sepsis Screen Date sepsis recognized/suspect: Aug 01, 2025 Time Sepsis recognized/suspect: 1124 Recent Procedure: No On Antibiotic Therapy: No Respiratory Rate >20: No Heart Rate >90: No Temp<36 C (96.8 F) or >38.3 C: No SBP <90 or MAP <65 mmHG: No New Acute Mental Status Change: No Is the patient on CPAP, BIPAP,: No Physician Orders Rt Upper Dvt (08/01/25 11:55) Vital Signs Date Time Temp Pulse Resp B/P (MAP) Pulse Ox O2 Delivery O2 Flow Rate FiO2 08/01/25 11:19 97.8 88 16 131/92 98 97.8 Departure 1 Departure Time of Disposition: 13:13 Impression: Primary Impression: Shoulder pain, right Qualified Codes: M25.511 - Pain in right shoulder; G89.29 - Other chronic pain Disposition: 01 HOME / SELF CARE / HOMELESS Condition: Good Discharged With: Self Critical Care Note Critical Care Time?: No Stability Stability form required: No Heart Score Heart Score: Heart Score Response (Comments) Value History N/A 0 EKG N/A 0 Age N/A 0 Risk Factors N/A 0 Troponin N/A 0 Total 0 I personally scribed for RADHA AMIN MD ([email or web address]) on 08/01/25 at 11:54. Electronically submitted by Parker Pink ([email or web address]). RADHA AMIN MD Aug 01, 2025 11:54
--- NOTE | 2025-08-01 12:48 | DVH ---
RIGHT Upper Extremity Venous Duplex Clinical History: dvt Comparison: US RIGHT UPPER EXT. on DOS: 02/05/25 Technique: Duplex Doppler evaluation of the venous system of the RIGHT lower neck and upper extremity including color Doppler and spectral/pulsed waveform analysis was performed. Findings: The internal jugular vein demonstrates appropriate compressibility and waveform variability. The subclavian vein is patent on color Doppler evaluation without intraluminal thrombus and demonstra razia waveform variability. The visualized portion of the brachiocephalic vein is patent on color Doppler evaluation without intr aluminal thrombus and demonstrates waveform variability. The axillary vein demonstrates appropriate compressibility and waveform variability. The brachial veins demonstrate appropriate compressibility and patency on Doppler evaluation. The basilic vein demonstrates appropriate compressibility and patency on Doppler evaluation. The cephalic vein demonstrates appropriate compressibility and patency on Doppler evaluation. Impression: No venous thrombus identified in the RIGHT upper extremity vessels evaluated above.
[2025-08-01 13:23] VITALS: BP 122/78; PULSE 89; RESP 18; TEMP 98; O2SAT 99
== END 2025-08-01 13:26 | disposition home or self-care (01) ==
LOC: ER 11:17
DX: M25.511 Pain in right shoulder (principal); Z98.890 Other specified postprocedural states
CPT/HCPCS: 93971